=== PATIENT | female | born 1935 | race Caucasian/White ===

== ENCOUNTER 2016-12-13 17:01 | Emergency (ER) | payer MEDICARE, BC ==
[2016-12-13 17:40] VITALS: BP 165/51
--- NOTE | 2016-12-13 17:47 | UC ---
Hand/Wrist HPI - HPI Summary HPI Summary: Foosh right hand this morning tripped over a curb - History Of Current Complaint Chief Complaint: UCUpperExtremity Stated Complaint: S/P FALL RIGHT WRIST INJURY Time Seen by Provider: 12/13/16 17:42 Hx Obtained From: Patient ?: No Mechanism Of Injury: Foosh Onset/Duration: Sudden Onset Severity Initially: Moderate Severity Currently: Moderate Pain Intensity: 5 Pain Scale Used: 0-10 Numeric Character Of Pain: Aching Aggravating Factor(s): Movement Alleviating Factor(s): Rest, Ice, Elevation, OTC Meds Associated Signs And Symptoms: Positive: Swelling Related History: Dominant Hand Right - Allergies/Home Medications Allergies/Adverse Reactions: Allergies Allergy/AdvReac Type Severity Reaction Status Date / Time No Known Allergies Allergy Verified 12/13/16 17:34 Home Medications: Home Medications Apixaban* [Eliquis*] 5 mg PO BID 12/13/16 [History Confirmed 12/13/16] Atorvastatin* [Lipitor*] 80 mg PO QPM 12/13/16 [History Confirmed 12/13/16] Diltiazem HCl Coated Beads [Cartia Xt] 180 mg PO DAILY 12/13/16 [History Confirmed 12/13/16] Nebivolol TAB (NF) [Bystolic TAB (NF)] 2.5 mg PO DAILY 12/13/16 [History Confirmed 12/13/16] Sertraline* [Zoloft*] 100 mg PO BEDTIME 12/13/16 [History Confirmed 12/13/16] Termarsarten DAILY 12/13/16 [History] PMH/Surg Hx/FS Hx/Imm Hx Previously Healthy: No Endocrine History: Dyslipidemia Cardiovascular History: Hypertension Psychological History: Depression - Surgical History Surgical History: None - Family History Known Family History: Positive: None - Social History Occupation: Retired Lives: With Family Alcohol Use: None Substance Use Type: None Smoking Status (MU): Former Smoker When Did the Patient Quit Smoking/Using Tobacco: 20 years ago Review of Systems Constitutional: Negative Skin: Negative Eyes: Negative ENT: Negative Respiratory: Negative Cardiovascular: Negative Gastrointestinal: Negative Genitourinary: Negative Motor: Decreased ROM - right wrist Neurovascular: Negative Musculoskeletal: Arthralgia - wrist right Neurological: Negative Psychological: Negative Is Patient Immunocompromised?: No All Other Systems Reviewed And Are Negative: Yes Physical Exam Triage Information Reviewed: Yes Appearance: Well-Appearing, No Pain Distress, Well-Nourished Vital Signs: Initial Vital Signs Temp 99.7 F 12/13/16 17:35 Pulse 69 12/13/16 17:35 Resp 18 12/13/16 17:35 BP 165/51 12/13/16 17:35 Vital Signs Reviewed: Yes Eye Exam: Normal Eyes: Positive: Conjunctiva Clear ENT Exam: Normal ENT: Positive: Normal ENT inspection, Hearing grossly normal. Negative: Nasal congestion, Nasal drainage, Trismus, Muffled/hoarse voice Dental Exam: Normal Neck exam: Normal Neck: Positive: Supple, Nontender Respiratory Exam: Normal Respiratory: Positive: Chest non-tender, Lungs clear, Normal breath sounds, No respiratory distress, No accessory muscle use Cardiovascular Exam: Normal Cardiovascular: Positive: RRR, No Murmur, Pulses Normal, Brisk Capillary Refill Musculoskeletal Exam: Normal Musculoskeletal: Positive: Strength Intact, ROM Limited @ - right wrist, Edema @ - right wrist Neurological Exam: Normal Neurological: Positive: Alert, Muscle Tone Normal Psychological Exam: Normal Skin Exam: Normal Diagnostics - Radiology No standard instances Xray Interpretation: Positive (See Comments) - ulnar styloid fx, impacted distal radius Radiology Interpretation Completed By: ED Physician, Radiologist Re-Evaluation - Re-Evaluation First Eval Change: Improved - sugar toung splint and sling increase comfort n/m/c intact Hand/Wrist Course/Dx - Course Course Of Treatment: rice, splint sling tylenol follow with ortho - Differential Dx/Diagnosis Provider Diagnoses: Right wrist fracture Discharge - Discharge Plan Condition: Stable Disposition: HOME Patient Education Materials: Acetaminophen (By mouth), Wrist Fracture in Adults (ED), Hypertension (ED), RICE Therapy (ED) Referrals: Austin Calle MD [Medical Doctor] - 4 Days Bhupinder Ge MD [Primary Care Provider] - 1 Week
--- NOTE | 2016-12-13 18:35 | RAD ---
Indication: Right wrist pain 3 views of the wrist demonstrates likely fracture of the distal radius. No significant displacement is noted. There may be an intra-articular component. Fracture of the ulnar styloid process is noted. IMPRESSION: Fracture distal radius and ulnar styloid process.
== END 2016-12-13 19:17 | disposition home or self-care (01) ==
LOC: UCCORT 17:01
DX: S62.101A Fracture of unspecified carpal bone, right wrist, initial encounter for closed fracture (principal); W01.0XXA Fall on same level from slipping, tripping and stumbling without subsequent striking against object, initial encounter; Y92.9 Unspecified place or not applicable; E78.5 Hyperlipidemia, unspecified; I10 Essential (primary) hypertension; Z87.891 Personal history of nicotine dependence
CPT/HCPCS: 25600; 99201; G0463